=== PATIENT | male | born 1985 | race Caucasian/White ===

== ENCOUNTER 2020-04-13 09:44 | Emergency (ER) | payer OTHER ==
[~2020-04-13] VITALS: Ht 172.7 cm; Wt 69.4 kg
== END 2020-04-13 16:06 | disposition home or self-care (01) ==
LOC: ER 09:44
DX: N20.1 Calculus of ureter (principal); R10.31 Right lower quadrant pain; Z03.818 Encounter for observation for suspected exposure to other biological agents ruled out